=== PATIENT | male | born 1945 | race Caucasian/White ===

== ENCOUNTER 2020-06-07 11:30 | Emergency (ER) | payer MEDICARE, BC ==
[~2020-06-07] VITALS: Ht 177.8 cm; Wt 72.7 kg
--- NOTE | 2020-06-07 12:07 | NUR ---
PT TO CT SCAN.
[2020-06-07 12:28] LABS: BASOPHILS # (AUTO) 0.1 X10'3 (0-0.2); EOSINOPHILS # (AUTO) 0.2 X10'3 (0-0.9); EOSINOPHILS % (AUTO) 2.6 % (0-6); HEMATOCRIT 36.1 % (42.0-52.0); HEMOGLOBIN 12.1 g/dl (14.0-17.9); LYMPHOCYTES # (AUTO) 2.1 X10'3 (1.1-4.8); LYMPHOCYTES % (AUTO) 31.2 % (21-51); MEAN CORPUSCULAR HEMOGLOBIN 33.5 PG (27.0-31.0); MEAN CORPUSCULAR HGB CONC 33.6 g/dL (33.0-36.5); MEAN CORPUSCULAR VOLUME 99.8 FL (78-98); MEAN PLATELET VOLUME 7.7 FL (7.4-10.4); MONOCYTES # (AUTO) 0.7 X10'3 (0-0.9); MONOCYTES % (AUTO) 9.7 % (2-12); NEUTROPHILS # (AUTO) 3.8 X10'3 (1.8-7.7); NEUTROPHILS % (AUTO) 55.5 % (42-75); PLATELET COUNT 195 X10'3 (140-440); RED BLOOD COUNT 3.62 X10'6 (4.70-6.10); RED CELL DISTRIBUTION WIDTH 13.1 % (11.5-14.5); WHITE BLOOD COUNT 6.8 X10'3 (4.5-11.0)
[2020-06-07 12:38] LABS: ALBUMIN 2.9 G/DL (3.4-5.0); ANION GAP 9 (8-16); BLOOD UREA NITROGEN 16 MG/DL (7-18); BUN/CREATININE RATIO 18.8 (5.4-32.0); CALCIUM 7.4 MG/DL (8.5-10.1); CHLORIDE 112 MMOL/L (99-107); CREATININE 0.85 MG/DL (0.60-1.10); GLUCOSE 111 MG/DL (70-104); POTASSIUM 3.1 MMOL/L (3.5-5.1); SODIUM 144 MMOL/L (135-145); TOTAL CARBON DIOXIDE 23.1 MMOL/L (24-32); TROPONIN I < 0.04 NG/ML (0.0-0.05); eGFR 88 ML/MIN
[2020-06-07] MEDS ORDERED: potassium Cl 20 mEq SR tablet PO STA (12:50)
[2020-06-07] MEDS ORDERED: magnesium oxide 400mg tablet PO ONE (12:50)
[2020-06-07 13:33] VITALS: BP 114/72
== END 2020-06-07 13:30 | disposition home or self-care (01) ==
LOC: ER 11:32
DX: R55 Syncope and collapse (principal); R42 Dizziness and giddiness; R11.10 Vomiting, unspecified
CPT/HCPCS: 36415; 70450; 71046; 80048; 84484; 85025; 93005; 99285

== ENCOUNTER 2020-06-13 09:30 | Emergency (ER) | payer MEDICARE, BC ==
[~2020-06-13] VITALS: Ht 177.8 cm; Wt 69.4 kg
[2020-06-13] MEDS ORDERED: normal saline 1000ML IV soln IV ONE (10:25)
[2020-06-13 11:09] LABS: BASOPHILS # (AUTO) 0.1 X10'3 (0-0.2); BASOPHILS % (AUTO) 0.7 % (0-1); EOSINOPHILS % (AUTO) 0.1 % (0-6); HEMATOCRIT 38.2 % (42.0-52.0); HEMOGLOBIN 12.9 g/dl (14.0-17.9); LYMPHOCYTES # (AUTO) 0.3 X10'3 (1.1-4.8); LYMPHOCYTES % (AUTO) 3.3 % (21-51); MEAN CORPUSCULAR HEMOGLOBIN 33.5 PG (27.0-31.0); MEAN CORPUSCULAR HGB CONC 33.7 g/dL (33.0-36.5); MEAN CORPUSCULAR VOLUME 99.4 FL (78-98); MEAN PLATELET VOLUME 7.3 FL (7.4-10.4); MONOCYTES # (AUTO) 0.3 X10'3 (0-0.9); MONOCYTES % (AUTO) 2.9 % (2-12); NEUTROPHILS # (AUTO) 8.8 X10'3 (1.8-7.7); PLATELET COUNT 157 X10'3 (140-440); RED BLOOD COUNT 3.84 X10'6 (4.70-6.10); RED CELL DISTRIBUTION WIDTH 13.5 % (11.5-14.5); WHITE BLOOD COUNT 9.4 X10'3 (4.5-11.0)
[2020-06-13 11:52] LABS: ALANINE AMINOTRANSFERASE 21 U/L (12-78); ALBUMIN 3.5 G/DL (3.4-5.0); ALBUMIN/GLOBULIN RATIO 1.1 (1.1-1.5); ALKALINE PHOSPHATASE 111 IU/L (46-116); ANION GAP 9 (8-16); ASPARTATE AMINO TRANSFERASE 17 U/L (10-37); BILIRUBIN,TOTAL 0.8 MG/DL (0.1-1.0); BLOOD UREA NITROGEN 13 MG/DL (7-18); BUN/CREATININE RATIO 12.1 (5.4-32.0); CALCIUM 8.4 MG/DL (8.5-10.1); CHLORIDE 108 MMOL/L (99-107); CREATININE 1.07 MG/DL (0.60-1.10); GLUCOSE 99 MG/DL (70-104); POTASSIUM 3.8 MMOL/L (3.5-5.1); SODIUM 142 MMOL/L (135-145); TOTAL PROTEIN 6.8 G/DL (6.4-8.2); eGFR 68 ML/MIN
[2020-06-13 11:53] LABS: MAGNESIUM 1.6 MG/DL (1.5-2.4)
[2020-06-13 12:12] LABS: CLARITY,URINE CLOUDY (Clear); COLOR,URINE YELLOW (Yellow); GLUCOSE, URINE NEGATIVE (Neg); KETONES,URINE NEGATIVE (Neg); LEUKOCYTE ESTERASE ,URINE MODERATE (Neg); NITRITES, URINE NEGATIVE (Neg); OCCULT BLOOD,URINE NEGATIVE (Neg); PROTEIN,URINE NEGATIVE (Neg); UROBILINOGEN,URINE 0.2 E.U/dL (0.2-1.0)
[2020-06-13 12:20] LABS: UA COLLECTION TYPE VOIDED
[2020-06-13 12:25] LABS: RBC,URINE 0-2 /HPF (0-2); WBC,URINE 50-100 /HPF (0-4)
[2020-06-13 12:28] LABS: MUCUS STRANDS MANY /LPF (Neg); SQUAMOUS EPITHELIAL CELL,UR MANY /LPF (FEW)
[2020-06-13 12:37] LABS: BACTERIA,URINE 4+ /HPF (Neg)
[2020-06-13 12:47] VITALS: BP 100/54
== END 2020-06-13 12:48 | disposition home or self-care (01) ==
LOC: ER 09:31
DX: R53.83 Other fatigue (principal); R11.10 Vomiting, unspecified; R55 Syncope and collapse; G47.30 Sleep apnea, unspecified; Z00.8 Encounter for other general examination
CPT/HCPCS: 36415; 71045; 80053; 81001; 83605; 83735; 84145; 85025; 87040; 93005; 96360; 99285; J7030

== ENCOUNTER 2020-08-02 09:54 | Emergency (ER) | payer MEDICARE, BC ==
[~2020-08-02] VITALS: Ht 177.8 cm; Wt 72.7 kg
[2020-08-02] MEDS ORDERED: ketorolac trometh inj. 60 MG/2 ML VIAL IM ONE (10:40)
[2020-08-02] MEDS ORDERED: diazepam 5mg tablet PO ONE (10:40)
[2020-08-02] MEDS ORDERED: ketorolac trometh. 30mg/ml inj. IM ONE (10:45)
--- NOTE | 2020-08-02 11:01 | NUR ---
JOYCE BLACKBURN [phone] PLEASE CALL WITH UPDATE WHEN ABLE
[2020-08-02] MEDS ORDERED: DIAZ5TAB PO (12:00)
[2020-08-02] MEDS ORDERED: MELO-102 PO (12:00)
[2020-08-02 12:13] VITALS: BP 111/61
== END 2020-08-02 12:44 | disposition home or self-care (01) ==
LOC: ER 09:54
DX: M62.830 Muscle spasm of back (principal); M54.5 Low back pain; G47.30 Sleep apnea, unspecified; Z79.899 Other long term (current) drug therapy
CPT/HCPCS: 96372; 99283; J1885